=== PATIENT | female | born 1970 | race Caucasian/White ===

== ENCOUNTER 2016-08-14 10:59 | Inpatient (IN) | payer BC ==
[2016-08-14] MEDS ORDERED: LEVOTHYROXIN88 MCG PO (14:16)
[2016-08-14] MEDS ORDERED: LEVSINTAB PO (14:17)
[2016-08-14] MEDS ORDERED: PCET PO (14:17)
[2016-08-14] MEDS ORDERED: MULTIVITAMI1 PO (14:17)
[2016-08-14] MEDS ORDERED: PEP20 PO (14:18)
[2016-08-14] MEDS ORDERED: PR25 PO (14:18)
[2016-08-14] MEDS ORDERED: ZYRTEC ALLGY10 MG PO (14:19)
[2016-08-14] MEDS ORDERED: VITAMIN D400 UNI1 PO (14:19)
[2016-08-14] MEDS ORDERED: SINGULAIR1 PO (14:19)
[2016-08-15 06:23] LABS: BASOPHILS 0.1 %; BASOPHILS ABSOLUTE 0.01 10/3/uL (0.0-0.16); EOSINOPHILS 3.2 %; HEMATOCRIT 41.2 % (36.0-48.0); HEMOGLOBIN 13.6 g/dL (12.0-16.0); IMMATURE GRANULOCYTES 0.3 %; IMMATURE GRANULOCYTES ABSOLUTE 0.03 10/3/uL (0.0-0.11); LYMPHOCYTES 9.4 %; LYMPHOCYTES ABSOLUTE 0.88 10/3/uL (0.67-4.30); MEAN CORPUSCULAR HEMOGLOB 27.5 pg (26.0-34.0); MEAN CORPUSCULAR VOLUME 83.4 fL (80-100); MEAN PLATELET VOLUME 10.5 fL (9.2-13.0); MONOCYTES 6.2 %; MONOCYTES ABSOLUTE 0.58 10/3/uL (0.21-1.20); NEUTROPHILS 80.8 %; NEUTROPHILS ABSOLUTE 7.59 10/3/uL (2.02-8.40); PLATELET COUNT 250 10/3/uL (150-400); RBC DISTRIBUTION WIDTH 14.3 % (12.0-16.0); RED CELL COUNT 4.94 10/6/uL (4.0-5.6); WHITE BLOOD CELLS 9.4 10/3/uL (4.5-10.5)
[2016-08-15 06:24] LABS: MANUAL DIFF NO %
[2016-08-15 06:30] LABS: BUN (BLOOD UREA NITROGEN) 7 MG/DL (6-23); CALCIUM, SERUM 8.9 MG/DL (8.5-10.4); CHLORIDE, SERUM 104 MMOL/L (96-112); CO2 (CARBON DIOXIDE) 25 MMOL/L (24-34); CREATININE 0.64 MG/DL (0.55-1.02); GFR AFRICAN AMERICAN 126 ML/MIN (>=60); GFR NON AFRICAN AMERICAN 109 ML/MIN (>=60); GLUCOSE, SERUM 111 MG/DL (60-99); POTASSIUM, SERUM 3.9 MMOL/L (3.5-5.3); SODIUM, SERUM 136 MMOL/L (135-148)
[2016-08-16] MEDS ORDERED: ASAB PO (09:33)
[2016-08-16] MEDS ORDERED: LOP25 PO (09:33)
[2016-08-16] MEDS ORDERED: PLAVIX PO (09:33)
[2016-08-16] MEDS ORDERED: LIPITOR40 PO (10:48)
== END 2016-08-16 11:42 | disposition home or self-care (01) | DRG 280 ==
LOC: CORLMH 10:59 → SSU1 13:59 → CORLMH 14:00 → SSU1 14:01 → 5NO 08-15 09:25
PROVIDERS: Internal Medicine Cardiovascular Disease
PROC: 4A023N7 Measurement of Cardiac Sampling and Pressure, Left Heart, Percutaneous Approach (ICD-10-PCS; principal; 2016-08-14)
PROC: B2111ZZ Fluoroscopy of Multiple Coronary Arteries using Low Osmolar Contrast (ICD-10-PCS; 2016-08-14)
PROC: B2151ZZ Fluoroscopy of Left Heart using Low Osmolar Contrast (ICD-10-PCS; 2016-08-14)
DX: I21.4 Non-ST elevation (NSTEMI) myocardial infarction (principal); I25.42 Coronary artery dissection
CPT/HCPCS: 80048; 84703; 85025; 85730; 93458; 99152; 99153; A9270-GY; C1769; C1887; C1894; C8929; J2250; J2405; J3010; Q9957; Q9967